=== PATIENT | female | born 1935 | race Caucasian/White ===

== ENCOUNTER 2017-01-19 08:11 | Outpatient (CLI) | payer MEDICARE ==
[2017-01-19] MEDS ORDERED: Iopamidol 370 76% 100 ML VIAL ONE (11:03)
--- NOTE | 2017-01-19 11:04 | CT ---
CT CHEST WITH IV CONTRAST: Technique: Multiple axial tomograms were obtained through the chest with IV enhancement. History: Colon cancer. Left scapular pain. Elevated alkaline phosphates. Currently on chemo therapy. FINDINGS: The lungs are clear of infiltrate. Mild atelectatic changes in the lung bases posteriorly. No effusi on. No pulmonary mass or nodule identified. The mediastinum is unremarkable. No adenopathy is seen. No axillary adenopathy identified. Images th rough the upper abdomen appear unremarkable. Review of the osseous structures show no evidence of blastic or lytic process. The visualized left s capula appears unremarkable. Mild degenerative changes at both shoulder noted with some mild spurrin g from the glenoid on both sides. The thoracic spine appears unremarkable with mild to moderate dege nerative change. IMPRESSION: Unremarkable CT scan of chest. POS: LISSY
== END 2017-01-19 08:12 | disposition home or self-care (01) ==
LOC: MADCT 08:11
PROVIDERS: ATTEND Physician Assistant
DX: C18.9 Malignant neoplasm of colon, unspecified (principal)
CPT/HCPCS: 36415; 71260; 82565

== ENCOUNTER 2022-05-06 22:49 | Emergency (ER) | payer MEDICARE, OTHER ==
[2022-05-06 23:34] LABS: #Basophils 0.2 thou/uL (0.0-0.2); #Eosinphils 0.1 thou/uL (0.0-0.7); #Lymphocytes 1.7 thou/uL (1.20-3.40); #Monocytes 0.5 thou/uL (0.11-0.59); #Neutrophils 9.4 thou/uL (1.40-6.50); %Basophils 1.5 % (0.0-1.0); %Lymphocytes 14.1 % (21.0-51.0); %Monocytes 4.2 % (0.0-10.0); %Neutrophils 79.2 % (42.0-75.0); Hemoglobin 14.3 g/dL (12.0-16.0); Mean Corpuscular HGB CONC 32.7 g/dL (32.0-36.0); Mean Corpuscular Hemoglobin 31.1 pg (27.0-31.0); Mean Corpuscular Volume 95.1 fL (78.0-98.0); Mean Platelet Volume 13.4 fL (7.4-10.4); Platelet Count 205 thou/uL (130-400); RBC Distribution Width 12.4 % (11.5-14.5); White Blood Cell (WBC) Count 11.9 thou/uL (4.8-10.8)
[2022-05-06 23:52] LABS: ALT (SGPT) 54 U/L (8-55); AST (SGOT) 124 U/L (5-34); Albumin 3.7 g/dL (3.4-4.8); Alkaline Phosphatase 100 U/L (40-110); Anion Gap 14 mmol/L (10-20); BUN (Urea Nitrogen) 15 mg/dL (9.8-20.1); Bilirubin, Total 0.3 mg/dL (0.2-1.2); Carbon Dioxide 26 mmol/L (23-31); Chloride 106 mmol/L (98-107); Globulin 2.6 g/dL (2.4-3.5); Glucose 119 mg/dL (83-110); Potassium 3.5 mmol/L (3.5-5.1); Protein, Total 6.3 g/dL (5.8-8.1); Sodium 142 mmol/L (136-145)
[2022-05-07 00:07] LABS: Calc. Creatinine Clearance 0 mL/min (70-130); Estimated GFR 73
[2022-05-07 01:55] LABS: Troponin I Less than 0.010 ng/mL (< 0.028)
== END 2022-05-07 02:06 | disposition home or self-care (01) ==
LOC: MADERS 22:49
DX: R07.2 Precordial pain (principal); I10 Essential (primary) hypertension; E78.5 Hyperlipidemia, unspecified; Z79.899 Other long term (current) drug therapy
CPT/HCPCS: 71045; 80053; 84484; 85025; 93005

== ENCOUNTER 2022-10-06 18:53 | Emergency (ER) | payer OTHER ==
[~2022-10-06 18:53] MED LIST: Sodium Chloride 0.9% 500 ML BAG ONE
[2022-10-06] MEDS ORDERED: Aspirin Chewable 81 MG TAB ONE (19:58)
[2022-10-06 20:01] LABS: #Basophils 0.1 thou/uL (0.0-0.2); #Eosinphils 0.1 thou/uL (0.0-0.7); #Lymphocytes 1.4 thou/uL (1.20-3.40); #Monocytes 0.4 thou/uL (0.11-0.59); #Neutrophils 9.1 thou/uL (1.40-6.50); %Basophils 1.3 % (0.0-1.0); %Eosinophils 1.3 % (0.0-10.0); %Lymphocytes 12.9 % (21.0-51.0); %Monocytes 3.4 % (0.0-10.0); %Neutrophils 81.2 % (42.0-75.0); Hemoglobin 14.5 g/dL (12.0-16.0); Mean Corpuscular HGB CONC 32.6 g/dL (32.0-36.0); Mean Corpuscular Hemoglobin 30.4 pg (27.0-31.0); Mean Corpuscular Volume 93.1 fl (78.0-98.0); Mean Platelet Volume 9.5 fL (7.4-10.4); Platelet Count 253 10x3/uL (130-400); Red Blood Cell (RBC) Count 4.76 mill/uL (4.20-5.40); White Blood Cell (WBC) Count 11.2 10x3/uL (4.8-10.8)
[2022-10-06 20:14] LABS: INR-International Normal Ratio 1.1; Prothrombin Time 14.8 sec (12.0-14.7)
[2022-10-06 20:15] LABS: PTT 27.7 sec (22.9-36.1)
[2022-10-06 20:16] LABS: D-Dimer Test 0.39 *mcg/mL (0.27-0.43)
[2022-10-06 20:22] LABS: ALT (SGPT) 71 U/L (8-55); AST (SGOT) 184 U/L (5-34); Albumin 3.5 g/dL (3.4-4.8); Alkaline Phosphatase 84 U/L (40-110); Anion Gap 14 mmol/L (10-20); BUN (Urea Nitrogen) 17 mg/dL (9.8-20.1); Bilirubin, Total 0.5 mg/dL (0.2-1.2); Calc. Creatinine Clearance 0 mL/min (70-130); Calcium 9.2 mg/dL (7.8-10.44); Carbon Dioxide 24 mmol/L (23-31); Chloride 106 mmol/L (98-107); Estimated GFR 62; Globulin 2.9 g/dL (2.4-3.5); Glucose 165 mg/dL (83-110); Magnesium 2.2 mg/dL (1.6-2.6); Potassium 3.3 mmol/L (3.5-5.1); Protein, Total 6.4 g/dL (5.8-8.1); Sodium 141 mmol/L (136-145)
[2022-10-06] MEDS ORDERED: Potassium Chloride 20 MEQ TAB ONE (21:19)
== END 2022-10-06 23:55 | disposition home or self-care (01) ==
LOC: MADERS 18:53
DX: R07.89 Other chest pain (principal); E87.6 Hypokalemia; R74.01 Elevation of levels of liver transaminase levels; R06.02 Shortness of breath; I10 Essential (primary) hypertension; E78.5 Hyperlipidemia, unspecified; Z79.899 Other long term (current) drug therapy
CPT/HCPCS: 71045; 80053; 83735; 83880; 84484; 85025; 85379; 85610; 85730; 87804; 93005; J7030

== ENCOUNTER 2023-08-01 13:19 | Emergency (ER) | payer OTHER ==
[2023-08-01] MEDS ORDERED: Acetaminophen 500 MG TAB ONE (14:32)
[2023-08-01 15:14] LABS: INR-International Normal Ratio 1.1; Prothrombin Time 14.2 sec (12.0-14.7)
[2023-08-01 15:15] LABS: PTT 26.7 sec (22.9-36.1)
[2023-08-01 15:23] LABS: Hematocrit 46.9 % (36.0-47.0); Hemoglobin 14.8 g/dL (12.0-16.0); Mean Corpuscular HGB CONC 31.5 g/dL (32.0-36.0); Mean Corpuscular Hemoglobin 31.1 pg (27.0-31.0); Mean Corpuscular Volume 98.6 fl (78.0-98.0); Mean Platelet Volume 10.5 fL (7.4-10.4); Platelet Count 204 10x3/uL (130-400); RBC Distribution Width 12.9 % (11.5-14.5); Red Blood Cell (RBC) Count 4.76 mill/uL (4.20-5.40); White Blood Cell (WBC) Count 16.3 10x3/uL (4.8-10.8)
[2023-08-01 15:24] LABS: Band 1 % (5-11); Eosinophils 1 % (0-10); MDiff Complete? YES; Monocytes 3 % (0-10); Neutrophil 93 % (42-75)
[2023-08-01 15:25] LABS: ALT (SGPT) 16 U/L (8-55); AST (SGOT) 22 U/L (5-34); Albumin 3.8 g/dL (3.4-4.8); Alkaline Phosphatase 84 U/L (40-110); Anion Gap 16 mmol/L (10-20); BUN (Urea Nitrogen) 15 mg/dL (9.8-20.1); Bilirubin, Total 0.5 mg/dL (0.2-1.2); Calc. Creatinine Clearance 0 mL/min (70-130); Carbon Dioxide 24 mmol/L (23-31); Chloride 104 mmol/L (98-107); Estimated GFR 75; Glucose 120 mg/dL (83-110); Potassium 3.2 mmol/L (3.5-5.1); Protein, Total 6.8 g/dL (5.8-8.1); Sodium 141 mmol/L (136-145)
[2023-08-01 15:41] LABS: Bilirubin Negative (Negative); Blood, Urine Trace (Negative); Clarity Clear (Clear); Glucose, Urine (Dipstick) Negative (Negative); Ketone, Urine 15 mg/dL (Negative); Leukocyte Negative (Negative); Nitrite Negative (Negative); Protein, Urine (Dipstick) Negative (Neg-Trace); Specific Gravity, Urine 1.025 (1.005-1.030); Urobilinogen 0.2 mg/dL (Less than 2)
[2023-08-01 15:46] LABS: Bacteria/HPF Rare-Few HPF (None Seen); CAUTI Indications for Culture Dysuria,urgency,freq; Mucous/LPF Few LPF (<2+); Squamous Epithelial 0-3 HPF (0-3); Urine Culture Reflex No No; WBC/HPF 0-3 HPF (0-3)
[2023-08-01] MEDS ORDERED: Potassium Chloride 20 MEQ TAB ONE (15:47)
== END 2023-08-01 16:39 | disposition short-term general hospital (02) ==
LOC: MADERS 13:19
DX: S72.144A Nondisplaced intertrochanteric fracture of right femur, initial encounter for closed fracture (principal); I10 Essential (primary) hypertension; E78.5 Hyperlipidemia, unspecified; W01.0XXA Fall on same level from slipping, tripping and stumbling without subsequent striking against object, initial encounter; Z79.82 Long term (current) use of aspirin; Z79.899 Other long term (current) drug therapy
CPT/HCPCS: 51702; 72170; 80053; 81001; 85025; 85610; 85730

== ENCOUNTER 2024-06-25 07:19 | Emergency (ER) | payer MEDICARE ==
[2024-06-25 08:27] LABS: Hematocrit 52.5 % (36.0-47.0); Hemoglobin 16.2 g/dL (12.0-16.0); Mean Corpuscular HGB CONC 30.9 g/dL (32.0-36.0); Mean Corpuscular Hemoglobin 30.2 pg (27.0-31.0); Mean Corpuscular Volume 97.9 fl (78.0-98.0); Mean Platelet Volume 10.6 fL (7.4-10.4); Platelet Count 284 10x3/uL (130-400); RBC Distribution Width 12.3 % (11.5-14.5); Red Blood Cell (RBC) Count 5.36 mill/uL (4.20-5.40); White Blood Cell (WBC) Count 8.9 10x3/uL (4.8-10.8)
[2024-06-25 08:29] LABS: ALT (SGPT) 14 U/L (8-55); AST (SGOT) 18 U/L (5-34); Albumin 3.5 g/dL (3.4-4.8); Alkaline Phosphatase 119 U/L (40-110); Anion Gap 18 mmol/L (10-20); BUN (Urea Nitrogen) 14 mg/dL (9.8-20.1); Bilirubin, Total 0.9 mg/dL (0.2-1.2); Calc. Creatinine Clearance 0 mL/min (70-130); Calcium 9.7 mg/dL (7.8-10.44); Carbon Dioxide 23 mmol/L (23-31); Chloride 102 mmol/L (98-107); Estimated GFR 64; Globulin 4.2 g/dL (2.4-3.5); Glucose 117 mg/dL (83-110); INR-International Normal Ratio 1.1; Potassium 3.6 mmol/L (3.5-5.1); Protein, Total 7.7 g/dL (5.8-8.1); Prothrombin Time 13.8 sec (12.0-14.7); Sodium 139 mmol/L (136-145)
[2024-06-25 08:30] LABS: PTT 30.8 sec (22.9-36.1)
[2024-06-25 08:32] LABS: Manual Diff?? YES
[2024-06-25 08:33] LABS: Band 2 % (5-11); Eosinophils 2 % (0-10); Lymphocytes 21 % (21-51); MDiff Complete? YES; Monocytes 10 % (0-10); Neutrophil 64 % (42-75)
[2024-06-25 08:34] LABS: Platelet Adequacy Comment Appears Adequate; RBC Morph Comment Within Normal Limits
[2024-06-25 08:38] LABS: Bilirubin Negative (Negative); Blood, Urine Small (Negative); Clarity Clear (Clear); Glucose, Urine (Dipstick) Negative (Negative); Ketone, Urine 15 mg/dL (Negative); Leukocyte Negative (Negative); Nitrite Negative (Negative); Protein, Urine (Dipstick) Negative (Neg-Trace); Urobilinogen 0.2 mg/dL (Less than 2); pH, Urine 6.5 (5.0-9.0)
[2024-06-25 08:39] LABS: Bacteria/HPF Rare-Few HPF (None Seen); CAUTI Indications for Culture Urological Procedure; Squamous Epithelial 0-3 HPF (0-3); WBC/HPF 0-3 HPF (0-3)
[2024-06-25 08:41] LABS: Urine Culture Reflex Yes Yes
[2024-06-25] MEDS ORDERED: Iopamidol 370 76% 100 ML VIAL ONE (09:00)
== END 2024-06-25 12:45 | disposition home or self-care (01) ==
LOC: MADERS 07:19
DX: K62.89 Other specified diseases of anus and rectum (principal); K59.00 Constipation, unspecified; I10 Essential (primary) hypertension
CPT/HCPCS: 36415; 51701; 74177; 80053; 81001; 85025; 85610; 85730; 86850; 86900; 86901; 87086; Q9967

== ENCOUNTER 2024-08-28 07:57 | Emergency (ER) | payer MEDICARE ==
[2024-08-28] MEDS ORDERED: Ibuprofen 600 MG TAB ONE (09:01)
== END 2024-08-28 09:50 | disposition home or self-care (01) ==
LOC: MADERS 07:57
DX: S52.571A Other intraarticular fracture of lower end of right radius, initial encounter for closed fracture (principal); I10 Essential (primary) hypertension; W01.0XXA Fall on same level from slipping, tripping and stumbling without subsequent striking against object, initial encounter; Y92.89 Other specified places as the place of occurrence of the external cause
CPT/HCPCS: 29105; 99283